=== PATIENT | male | born 1945 | race Caucasian/White ===

== ENCOUNTER 2022-03-28 10:38 | Emergency (ER) | payer MEDICARE, BC, SELFPAY ==
[2022-03-28 10:46] VITALS: BP 132/89; PULSE 80; RESP 16; O2SAT 97; BMI 35.0
--- NOTE | 2022-03-28 10:57 | CRLHL7_ITS ---
For Patients: As a result of the Century Cures Act, medical imaging exams and procedure reports are released immediately into your electronic medical record. You may view this report before your referring provider. If you have questions, please contact your health care provider. INDICATION: FACIAL Injury FALL FROM STANDING COMPARISON: 03/29/2016 TECHNIQUE: A CT volumetric acquisition was performed of the brain without IV contrast. Please note that all CT scans at this facility use dose modulation, iterative reconstruction, and/or weight-based dosing when appropriate to reduce radiation dose to as low as reasonably achievable. FINDINGS: No intracranial hemorrhage, mass or mass effect. Chronic areas of low attenuation in the white matter bilaterally which are nonspecific but likely related to chronic small vessel ischemic disease. There is mild generalized cortical atrophy. No hydrocephalus or midline shift. No extra-axial fluid. No skull fracture. IMPRESSION: No intracranial hemorrhage. Please note that all CT scans at this facility use dose modulation, iterative reconstruction, and/or weight-based dosing when appropriate to reduce radiation dose to as low as reasonably achievable. Dictated by Alejandro Kidd MD @ 03/28/2022 11:31:54 AM (Electronically Signed)
--- NOTE | 2022-03-28 10:58 | CRLHL7_ITS ---
For Patients: As a result of the Cures Act, medical imaging exams and procedure reports are released immediately into your electronic medical record. You may view this report before your referring provider. If you have questions, please contact your health care provider. Indication: Right shoulder pain. Technique: Right shoulder 3 views. Comparison: None. Findings: Spurring at the acromioclavicular joint. Chronic degenerative changes to the greater tuberosity. Intact visualized ribs. Glenohumeral alignment normal. Soft tissue density superior to the humeral head. Impression: No sign of acute fracture. 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 Dictated by Alejandro Kidd MD @ 03/28/2022 11:25:31 AM (Electronically Signed)
--- NOTE | 2022-03-28 11:00 | CRLHL7_ITS ---
For Patients: As a result of the Century Cures Act, medical imaging exams and procedure reports are released immediately into your electronic medical record. You may view this report before your referring provider. If you have questions, please contact your health care provider. INDICATION: FACIAL Injury FALL FROM STANDING COMPARISON: none TECHNIQUE: A CT volumetric acquisition was performed without IV contrast. The CT data set was processed with 2.5 mm slice thickness and reviewed in an axial, sagittal and coronal plane of reformation on a standard soft tissue and bone algorithm. Please note that all CT scans at this facility use dose modulation, iterative reconstruction, and/or weight-based dosing when appropriate to reduce radiation dose to as low as reasonably achievable. FINDINGS: CT images demonstrate normal aeration within the frontal, maxillary, ethmoid and sphenoid sinuses. Leftward deviation of the anterior nasal septum. The infundibular portion of the ostiomeatal complex is intact bilaterally. The orbits are intact. There is a mildly displaced and slightly comminuted fracture of the left anterior nasal bone with adjacent subcutaneous gas. There are no areas of bone destruction. The mandible appears intact and the temporomandibular joints are anatomically aligned. The mastoid air cells and middle ear cavities are clear. IMPRESSION: Left anterior nasal bone fracture with mild adjacent subcutaneous emphysema and soft tissue swelling. Please note that all CT scans at this facility use dose modulation, iterative reconstruction, and/or weight-based dosing when appropriate to reduce radiation dose to as low as reasonably achievable. Dictated by Alejandro Kidd MD @ 03/28/2022 11:35:35 AM (Electronically Signed)
--- NOTE | 2022-03-28 11:00 | ED_ITS ---
HPI - General Adult General Time Seen by Provider: 11:01 Date Seen: 03/28/22 Chief complaint: Fall/Minor Trauma Stated complaint: Fell Time Seen by Provider: 03/28/22 10:48 Source: patient Mode of arrival: ambulatory History of Present Illness HPI narrative: David is a 77-year-old male past medical history includes hypertension, BPH, hyperlipidemia, gout presents emergency department after a fall. Patient states that he was walking into [employer] about an hour ago, hit his right foot on the sidewalk falling forward and reached out with his right arm. He struck the left side of his face on the sidewalk, sustaining injury to his lower lip and nasal area, patient denies any LOC, he is not on any blood thinners or antiplatelet therapy. He complains pain mostly in his right shoulder which has been a chronic issue for him, he does received cortisone shots in clinic for this. Denies any headache, dizziness, lightheadedness or visual changes. Denies any chest pain or shortness of breath. Patient had been doing well prior to the fall this morning. No other concerns at this time. Related Data Home Medications Medication Instructions Recorded Confirmed allopurinol 300 mg tablet mg 03/28/22 atorvastatin 20 mg tablet mg 03/28/22 doxazosin 4 mg tablet mg 03/28/22 finasteride 5 mg tablet mg 03/28/22 lisinopril 20 mg tablet mg 03/28/22 omeprazole 20 mg capsule,delayed mg 03/28/22 release Previous Rx's Medication Instructions Recorded tramadol 50 mg tablet 50 mg PO Q6H PRN pain #20 tabs 03/28/22 Allergies Allergy/AdvReac Type Severity Reaction Status Date / Time tamsulosin Allergy Unknown Verified 03/28/22 10:50 Review of Systems Status of ROS: Reports: 10 or more systems reviewed and unremarkable except as noted in History and below PFS PFS Social History Smoking Status: Former smoker Do you use any of these nicotine containing products: None Second hand tobacco smoke exposure: No How often do you have a drink containing alcohol: 4 or more times a week How many standard drinks containing alcohol do you have on a typical day: 1 or 2 How often do you have six or more drinks on one occasion: Monthly AUDIT-C Alcohol total score: 6 Non-prescribed substance use: denies use service: No Exam Narrative: Exam Narrative: General: No obvious distress, sitting comfortably HEENT: Upper left nasal deformity, swelling and bruising tender to palpation, no step-offs,, nares shows no signs of any septal hematoma. Lower lip: Swelling and abrasion on the outer portion, buccal side has a 1 cm laceration, no through and through. Dentition intact. Nontender that lower mandible, can actively open and close. Neck: Nontender cervical spine Lungs: Clear to auscultation bilaterally Heart: Normal sinus rhythm S1-S2 Abdomen: Soft nontender, BS present Muscle skeletal: Is tender to palpation the right anterior and lateral deltoid, no swelling or bruising, no deformity, Abduction to 90?, pain with internal- external rotation, pain with empty can test, median, ulnar, radial and anterior interosseous motor function normal. Neuro: Alert awake and oriented x3, gait within normal limits Const: Vital Signs, click to edit/add: Vital Signs - 24 hr 03/28/22 10:46 Pulse Rate [Left P ulse Oximeter] 80 Respiratory Rate 16 Blood Pressure [Ri ght Upper Arm] 132/89 Pulse Oximetry 97 Oxygen Delivery Me thod Room Air Course Course Hospital Course: 11:00 am: AIDET performed. Workup will include CT head without IV contrast including CT facial bones without contrast, will also obtain XR right shoulder three views, tramadol 100 mg orally for shoulder pain, patient is up-to-date on his tetanus status, likely perform laceration repair on his lower lip. Patient in agreement. Differential diagnosis include but not limited to subarachnoid hemorrhage, subdural hemorrhage and epidural hemorrhage. Other differential diagnosis include concussion and close head injury. Reevaluation(s) Reevaluation #1: X-ray right shoulder three view showed degenerative joint disease with chronic rotator cuff calcific tendinitis. CT head without IV contrast showed no intracranial hemorrhage mass or mass effect. CT facial without contrast showed a left anterior nasal bone fracture with mild adjacent subcutaneous emphysema and soft tissue swelling. Patient to be updated on his tetanus status, he is feeling better after above care given. Laceration repair complete please see procedure note. He will follow up with ENT next Friday for ER followup and recheck. Reasons to return given. Time: 11:58 Vital Signs Vital signs: Initial Vital Signs Pulse Rate 80 03/28/22 10:46 Pulse Rhythm 09/22/22 10:46 Pulse Strength 3+ Normal 03/28/22 10:46 Respiratory Rate 16 03/28/22 10:46 Blood Pressure 132/89 03/28/22 10:46 Blood Pressure Mean 103 03/28/22 10:46 Blood Pressure Position Sitting 03/28/22 10:46 Pulse Oximetry 97 03/28/22 10:46 Oxygen Delivery Method 03/28/22 10:46 Vital Signs Pulse Rate 80 03/28/22 10:46 Respiratory Rate 16 03/28/22 10:46 Blood Pressure 132/89 03/28/22 10:46 Pulse Oximetry 97 03/28/22 10:46 Oxygen Delivery Method 03/28/22 10:46 Pulse Rate 80 03/28/22 10:46 Respiratory Rate 16 03/28/22 10:46 Blood Pressure 132/89 03/28/22 10:46 Pulse Oximetry 97 03/28/22 10:46 Oxygen Delivery Method 03/28/22 10:46 Discharge Plan Discharge Clinical Impression: Closed fracture nasal bone, Laceration of lip, Injury of shoulder, right Patient Disposition: Home, Self-Care Condition: Improved Instructions: Nasal Fracture (ED) Additional Instructions: To follow up with ENT Dr. Alexis HAWK at [facility], this Friday for ER followup and recheck,, #[phone]. For his shoulder pain, tramadol 50-100 mg every 6 hours as needed. To follow-up with ENT as well as primary care provider. Activity Level: Activity as Tolerated Prescriptions: New tramadol 50 mg tablet 50 mg PO Q6H PRN (Reason: pain) Qty: 20 0RF No Action atorvastatin 20 mg tablet Label Comments: TAKE ONE TABLET BY MOUTH ONE TIME DAILY lisinopril 20 mg tablet Label Comments: TAKE ONE TABLET BY MOUTH ONE TIME DAILY omeprazole 20 mg capsule,delayed release(DR/EC) Label Comments: TAKE ONE CAPSULE BY MOUTH ONE TIME DAILY BEFORE A MEAL. doxazosin 4 mg tablet Label Comments: Take 1 Tablet (4 mg) by mouth once dailY At 3 pm. allopurinol 300 mg tablet Label Comments: TAKE ONE TABLET BY MOUTH ONE TIME DAILY finasteride 5 mg tablet Label Comments: TAKE ONE TABLET BY MOUTH ONE TIME DAILY AT BEDTIME Follow Up/Referrals: Amador Martin MD [Primary Care Provider] - Stand Alone Forms: [employer] Info Instructions
[2022-03-28] MEDS: TRAMADOL HCL 50 MG TABLET 100 MG PO (11:09)
[2022-03-28] MEDS: TETANUS/DIPHTH/PERTUSSIS 0.5 ML SYRINGE IM (11:45)
--- NOTE | 2022-03-28 11:46 | ED.NURSE ---
ENT paged for consult.
== END 2022-03-28 12:04 | disposition home or self-care (01) ==
LOC: ED 11:57
PROVIDERS: Emergency Provider Student in an Organized Health Care Education/Training Program; PCP Family Medicine
DX: S02.2XXA Fracture of nasal bones, initial encounter for closed fracture (principal); S01.511A Laceration without foreign body of lip, initial encounter; S49.91XA Unspecified injury of right shoulder and upper arm, initial encounter; W18.30XA Fall on same level, unspecified, initial encounter; Y93.01 Activity, walking, marching and hiking; Y92.481 Parking lot as the place of occurrence of the external cause; Y99.9 Unspecified external cause status
CPT/HCPCS: 12011; 70450; 70486; 73030; 90471; 90715; 99283; 99284; A9270

== ENCOUNTER 2022-03-28 16:39 | Emergency (ER) | payer MEDICARE, BC, SELFPAY | END 2022-03-28 17:38 | disposition left against medical advice (07) | PROVIDERS: Emergency Provider Family Medicine; PCP Family Medicine | DX: Z53.21 Procedure and treatment not carried out due to patient leaving prior to being seen by health care provider (principal) ==

== ENCOUNTER 2023-06-04 08:40 | Emergency (ER) | payer MEDICARE, BC, SELFPAY ==
[2023-06-04 08:45] VITALS: BP 148/87; PULSE 74; RESP 14; TEMP 36.8; O2SAT 95; BMI 30.4
--- NOTE | 2023-06-04 09:04 | CRLHL7_ITS ---
For Patients: As a result of the Century Cures Act, medical imaging exams and procedure reports are released immediately into your electronic medical record. You may view this report before your referring provider. If you have questions, please contact your health care provider. Indication: Chills Technique: Chest 1 view Comparison: Chest x-ray 11/15/2018 Findings/Impression: Cardiovascular and mediastinum: Heart size and vasculature are normal in caliber and appearance. Lungs and pleural space: Lungs are clear. No sign of infiltrate or mass. No sign of pleural effusion. No pneumothorax. Bones and soft tissues: No acute findings. Dictated by Scott Brian MD @ 06/04/2023 10:26:52 AM (Electronically Signed)
--- NOTE | 2023-06-04 09:06 | ED.GENADULT ---
HPI - General Adult General Chief complaint: Unspecified Complaint, Adult Stated complaint: reaction to COVID shot Time Seen by Provider: 06/04/23 08:57 History of Present Illness HPI narrative: [age] white male presents to complain of some body aches since he got a COVID shot about a month ago. Patient denies specifically sore throat, denies cough, denies dysuria frequency hematuria, denies chest pain or breathing problem. Patient does have history of gout and elevated lipids and hypertension and reflux by chart review. Patient denies any chest pain feeling. He reports he had some back aches last night and in his lower back and presents to the ER today. He had some medications stopped in thought that this might help his symptoms. But he was told by the clinic to come to the ER today. Related Data Home Medications Medication Instructions Recorded Confirmed allopurinol 300 mg tablet mg 03/28/22 04/03/22 atorvastatin 20 mg tablet mg 03/28/22 04/03/22 doxazosin 4 mg tablet mg 03/28/22 04/03/22 finasteride 5 mg tablet mg 03/28/22 04/03/22 lisinopril 20 mg tablet mg 03/28/22 04/03/22 omeprazole 20 mg capsule,delayed mg 03/28/22 04/03/22 release Previous Rx's Medication Instructions Recorded tramadol 50 mg tablet 50 mg PO Q6H PRN pain #20 tabs 03/28/22 Allergies Allergy/AdvReac Type Severity Reaction Status Date / Time tamsulosin Allergy Unknown Verified 06/04/23 08:52 Review of Systems Status of ROS: Reports: 6 or more systems reviewed and unremarkable except as noted in History and below PFSH PFS Social History Smoking Status: Unknown if ever smoked Do you use any of these nicotine containing products: None Second hand tobacco smoke exposure: No How often do you have a drink containing alcohol: 4 or more times a week How many standard drinks containing alcohol do you have on a typical day: 1 or 2 How often do you have six or more drinks on one occasion: Monthly AUDIT-C Alcohol total score: 6 Non-prescribed substance use: denies use service: No Exam Narrative: Exam Narrative: Objective: Vital signs look largely within normal limits other than slightly elevated blood pressure Alert orient x3 no distress HEENT is unremarkable The patient is hard of hearing Neck is supple no masses Chest is clear Heart rhythm regular 2/6 systolic ejection murmur Abdomen benign soft nontender Extremities are no edema neurologic nonfocal good peripheral perfusion noted Peripheral skin warm and dry Const: Vital Signs, click to edit/add: Vital Signs - 24 hr 06/04/23 08:45 Temperature 98.3 F Pulse Rate [Pulse Oximeter] 74 Respiratory Rate 14 Blood Pressure [Ri ght Upper Arm] 148/87 H Pulse Oximetry 95 Oxygen Delivery Me thod Room Air Course Vital Signs Vital signs: Initial Vital Signs Temperature 98.3 F 06/04/23 08:45 Temperature Source Temporal Artery Scan 06/04/23 08:45 Pulse Rate 74 06/04/23 08:45 Respiratory Rate 14 06/04/23 08:45 Blood Pressure 148/87 H 06/04/23 08:45 Blood Pressure Mean 107 H 06/04/23 08:45 Blood Pressure Position Sitting 06/04/23 08:45 Pulse Oximetry 95 06/04/23 08:45 Oxygen Delivery Method Room Air 06/04/23 08:45 Vital Signs Temperature 98.3 F 06/04/23 08:45 Pulse Rate 74 06/04/23 08:45 Respiratory Rate 14 06/04/23 08:45 Blood Pressure 148/87 H 06/04/23 08:45 Pulse Oximetry 95 06/04/23 08:45 Oxygen Delivery Method Room Air 06/04/23 08:45 Temperature 98.3 F 06/04/23 08:45 Pulse Rate 74 06/04/23 08:45 Respiratory Rate 14 06/04/23 08:45 Blood Pressure 148/87 H 06/04/23 08:45 Pulse Oximetry 95 06/04/23 08:45 Oxygen Delivery Method Room Air 06/04/23 08:45 Medical Decision Making MDM Narrative Medical decision making narrative: Patient is a 78 year white male has had some body aches since he got his COVID shot about a month ago. Patient was told by clinic come to the ER. He really has no symptoms at present, no fever, no hypoxia, no real body aches at this time, he said he had some low back ache last night. I think at this point would be reasonable to check some blood cultures, COVID/influenza/RSV, get a chest x-ray, urinalysis, urine culture. Will check electrolytes. Disposition pending findings. At this point the patient has no localizing infection symptoms but I think a workup would be appropriate and then likely careful follow-up with his primary care physician. Addendum 11:03 a.m.: The patient is laboratory studies show normal white count, normal hemoglobin, ER profile is unremarkable other than nonfasting glucose of 140 and potassium at 3.5., liver function profile is negative, CRP is negative, urinalysis is basically shows 3+ protein 2+ blood but no white cells or red cells await urine culture, viral studies are negative. At this point I would recommend observation follow up with primary care in the next 3-4 days certainly sooner change concerns worsening return to ED, at this point he certainly could have some kind of reaction to the vaccine but I having seen at this far out. Would recommend he try some anti-inflammatory such as Advil or Aleve and follow up with primary care in 3-4 days. Lab Data Labs: Lab Results 06/04/23 06/04/23 Range/Units 09:20 09:23 WBC 8.21 (4.50-11.00) K/uL RBC 4.18 L (4.30-5.90) m/uL Hgb 13.6 (13.5-17.5) gm/dL Hct 40.1 (37.0-53.0) % MCV 96 (80-100) fL MCH 33 (26-34) pg MCHC 34 (32-36) gm/dL RDW Coeff of Pam 12.8 (11.5-15.5) % Plt Count 297 (140-440) K/uL Neut % (Auto) 72.6 H (42.0-72.0) % Lymph % (Auto) 19.6 L (20-44) % [place] % (Auto) 5.6 (0.0-11.0) % Eos % (Auto) 1.7 (0.0-7.0) % Baso % (Auto) 0.0 (0.0-3.0) % Neut # (Auto) 6.00 (1.7-7.0) K/uL Lymph # (Auto) 1.60 (0.90-2.90) K/uL [place] # (Auto) 0.50 (0.00-0.90) K/UL Eos # (Auto) 0.14 (0.00-0.50) K/uL Baso # (Auto) 0.00 (0.00-0.30) K/uL Abs Immat Gran (auto) 0.04 (0.00-0.30) K/uL Imm/Tot Granulo (auto) 0.5 % Sodium 143 (135-149) mmol/L Potassium 3.5 L (3.6-5.1) mmol/L Chloride 109 (96-114) mmol/L Carbon Dioxide 25 (20-32) mmol/L Anion Gap 9 (7-15) mEq/L BUN 14 (7-30) mg/dL Creatinine 1.1 (0.5-1.5) mg/dL Estimated Creat Clear 55.27 Estimated GFR 70 ml/min Glucose 140 H (60-115) mg/dL Lactate 1.2 (0.5-1.9) mmol/L Calcium 8.8 (8.4-10.6) mg/dL Total Bilirubin 0.7 (0.1-1.5) mg/dL Direct Bilirubin 0.0 (0.0-0.5) mg/dL AST 23 (12-35) U/L ALT 19 (4-50) U/L Alkaline Phosphatase 87 (40-150) U/L C-Reactive Protein 0.9 (0.5-1.0) mg/dL Total Protein 7.7 (6.0-8.3) g/dL Albumin 4.2 (3.3-5.0) g/dL Urine Color Yellow (Yellow) Urine Appearance Clear (Clear) Urine pH 5.5 (5.0-8.5) Ur Specific [place] >= 1.030 (1.000-1.030) Urine Protein 3+ A (Negative) Urine Glucose (UA) Negative (Negative) Urine Ketones Negative (Negative) Urine Blood 2+ A (Negative) Urine Nitrite Negative (Negative) Urine Bilirubin Negative (Negative) Urine Urobilinogen 0.2 (0.2-1.0) Ur Leukocyte Esterase Negative (Negative) Urine RBC 0-2 (0-2) Urine WBC 0-2 (0-5) Ur Squamous Epith Cells None (None-Few) Urine Bacteria None (None) SARS-CoV-2 (PCR) Negative SARS-CoV-2 (Negative) Influenza Type A (PCR) Negative PCR FLU A (Negative) Influenza Type B (PCR) Negative PCR FLU B (Negative) RSV (PCR) Negative PCR RSV (Negative) Discharge Plan Discharge Clinical Impression: Body aches after vaccination Patient Disposition: Home, Self-Care Condition: Stable Additional Instructions: Advil as needed for discomfort or body aches, recommend follow-up with your regular doctor in the next couple days for reassessment, return to ED sooner problems concerns worsening. Activity Level: No strenuous activity Discharge Diet: Regular Prescriptions: No Action atorvastatin 20 mg tablet Patient Comments: TAKE ONE TABLET BY MOUTH ONE TIME DAILY lisinopril 20 mg tablet Patient Comments: TAKE ONE TABLET BY MOUTH ONE TIME DAILY omeprazole 20 mg capsule,delayed release(DR/EC) Patient Comments: TAKE ONE CAPSULE BY MOUTH ONE TIME DAILY BEFORE A MEAL. doxazosin 4 mg tablet Patient Comments: Take 1 Tablet (4 mg) by mouth once dailY At 3 pm. allopurinol 300 mg tablet Patient Comments: TAKE ONE TABLET BY MOUTH ONE TIME DAILY finasteride 5 mg tablet Patient Comments: TAKE ONE TABLET BY MOUTH ONE TIME DAILY AT BEDTIME tramadol 50 mg tablet 50 mg PO Q6H PRN (Reason: pain) Qty: 20 0RF Follow Up/Referrals: Amador Martin MD [Primary Care Provider] - Stand Alone Forms: [employer] Info Instructions
[2023-06-04 09:32] LABS: Lactate* 1.2 mmol/L (0.5-1.9)
[2023-06-04 09:33] LABS: Eosinophils Absolute Auto 0.14 K/uL (0.00-0.50); Eosinophils Percent Auto 1.7 % (0.0-7.0); Hematocrit 40.1 % (37.0-53.0); Hemoglobin* 13.6 gm/dL (13.5-17.5); Immature Granulocytes Abs Auto 0.04 K/uL (0.00-0.30); Immature Granulocytes Pct Auto 0.5 %; Lymphocytes Percent Auto 19.6 % (20-44); Mean Corpuscular HGB Conc 34 gm/dL (32-36); Mean Corpuscular Hemoglobin 33 pg (26-34); Mean Corpuscular Volume 96 fL (80-100); Monocytes Percent Auto 5.6 % (0.0-11.0); Neutrophils Percent Auto 72.6 % (42.0-72.0); Platelet Count* 297 K/uL (140-440); RDW Coefficient of Variation % 12.8 % (11.5-15.5); Red Blood Count 4.18 m/uL (4.30-5.90); White Blood Count* 8.21 K/uL (4.50-11.00)
[2023-06-04 09:38] LABS: Slide Review Reflex No
[2023-06-04 09:47] LABS: Chloride* 109 mmol/L (96-114); Sodium* 143 mmol/L (135-149)
[2023-06-04 09:48] LABS: Albumin* 4.2 g/dL (3.3-5.0); Potassium* 3.5 mmol/L (3.6-5.1)
[2023-06-04 09:51] LABS: Alanine Aminotransferase* 19 U/L (4-50); Alkaline Phosphatase* 87 U/L (40-150); Anion Gap 9 mEq/L (7-15); Aspartate Amino Transferase* 23 U/L (12-35); Bilirubin Total* 0.7 mg/dL (0.1-1.5); Blood Urea Nitrogen* 14 mg/dL (7-30); Carbon Dioxide* 25 mmol/L (20-32); Creatinine* 1.1 mg/dL (0.5-1.5); Est. Creatinine Clearance* 55.27; Estimated Glomerular Filt Rate 70 ml/min; Glucose* 140 mg/dL (60-115); Total Protein* 7.7 g/dL (6.0-8.3)
[2023-06-04 09:52] LABS: Calcium* 8.8 mg/dL (8.4-10.6)
[2023-06-04 09:54] LABS: C Reactive Protein* 0.9 mg/dL (0.5-1.0)
[2023-06-04 10:17] LABS: Appearance Urine Clear (Clear); Bilirubin Urine Negative (Negative); Blood Urine 2+ (Negative); Color Urine Yellow (Yellow); Glucose Urine Negative (Negative); Ketones Urine Negative (Negative); Leukocyte Esterase Urine Negative (Negative); Nitrite Urine Negative (Negative); Protein Urine 3+ (Negative); Specific Gravity Urine >= 1.030 (1.000-1.030); Urobilinogen Urine 0.2 (0.2-1.0); pH Urine 5.5 (5.0-8.5)
[2023-06-04 10:26] LABS: PCR FLU A Negative PCR FLU A (Negative); PCR FLU B Negative PCR FLU B (Negative); PCR RSV Negative PCR RSV (Negative)
[2023-06-04 10:27] LABS: SARS PCR* Negative SARS-CoV-2 (Negative)
[2023-06-04 10:39] LABS: RBC Urine 0-2 (0-2); WBC Urine 0-2 (0-5)
== END 2023-06-04 11:10 | disposition home or self-care (01) ==
PROVIDERS: Emergency Provider Family Medicine; PCP Family Medicine
DX: M79.18 Myalgia, other site (principal); T50.Z95A Adverse effect of other vaccines and biological substances, initial encounter
CPT/HCPCS: 36415; 71045; 80048; 80076; 81001; 83605; 85025; 86140; 87040; 87086; 87631; 99283; 99284

== ENCOUNTER 2024-06-23 08:51 | Emergency (ER) | payer MEDICARE, BC, SELFPAY ==
--- NOTE | 2024-06-23 | CRLHL7_ITS ---
For Patients: As a result of the Cures Act, medical imaging exams and procedure reports are released immediately into your electronic medical record. You may view this report before your referring provider. If you have questions, please contact your health care provider. Dictation for this exam included within the brain MRI report from the same date. Dictated by Grover Willis MD @ 06/23/2024 5:52:56 PM (Electronically Signed)
[2024-06-23 09:08] VITALS: BP 166/93; PULSE 64; RESP 16; TEMP 36.9; O2SAT 99; BMI 28.1
--- NOTE | 2024-06-23 09:53 | CRLHL7_ITS ---
For Patients: As a result of the Century Cures Act, medical imaging exams and procedure reports are released immediately into your electronic medical record. You may view this report before your referring provider. If you have questions, please contact your health care provider. INDICATION: Acute stroke, left-sided vision loss. TECHNIQUE: CTA head with contrast bolus tracking, 3D angiographic rendering using maximum intensity projection (MIP) and images permanently archived. FINDINGS: There is normal opacification of the intracranial vasculature. There is no large vessel occlusion. No aneurysm is identified. IMPRESSION: Unremarkable head CTA. Please note that all CT scans at this facility use dose modulation, iterative reconstruction, and/or weight-based dosing when appropriate to reduce radiation dose to as low as reasonably achievable. Dictated by Tino Gonzales MD @ 06/23/2024 1:58:00 PM (Electronically Signed)
--- NOTE | 2024-06-23 09:53 | CRLHL7_ITS ---
For Patients: As a result of the Century Cures Act, medical imaging exams and procedure reports are released immediately into your electronic medical record. You may view this report before your referring provider. If you have questions, please contact your health care provider. INDICATION: Acute stroke, left-sided vision loss. TECHNIQUE: CTA neck with contrast bolus tracking, 3D angiographic rendering using maximum intensity projection (MIP) and images permanently archived. FINDINGS: There is minor carotid atherosclerosis. There is no significant carotid artery stenosis or dissection. There is no significant vertebral artery stenosis or dissection. A small indeterminate right thyroid nodule is incidentally noted. The soft tissues of the neck are otherwise within normal limits. The cervical spine is in normal alignment. Degenerative changes are noted in the cervical spine. IMPRESSION: No significant carotid or vertebral artery stenosis or dissection. Please note that all CT scans at this facility use dose modulation, iterative reconstruction, and/or weight-based dosing when appropriate to reduce radiation dose to as low as reasonably achievable. Dictated by Tino Gonzales MD @ 06/23/2024 1:59:56 PM (Electronically Signed)
--- NOTE | 2024-06-23 09:53 | CRLHL7_ITS ---
For Patients: As a result of the Century Cures Act, medical imaging exams and procedure reports are released immediately into your electronic medical record. You may view this report before your referring provider. If you have questions, please contact your health care provider. INDICATION: Left-sided vision loss TECHNIQUE: CT head without contrast. COMPARISON: None. FINDINGS: CSF spaces: Within normal limits for age. Brain parenchyma: The marquez-white differentiation is normal. No sign of mass, hemorrhage, or midline shift. Moderate low-density within the deep white matter. Skull base and calvarium: Trace mucosal thickening paranasal sinuses. Small right mastoid effusion. The visualized orbits are grossly unremarkable. No skull fractures. Atherosclerosis. IMPRESSION: 1. No intracranial bleed or mass effect. 2. Nonspecific white matter disease, likely microangiopathy. Please note that all CT scans at this facility use dose modulation, iterative reconstruction, and/or weight-based dosing when appropriate to reduce radiation dose to as low as reasonably achievable. Dictated by Scott Brian MD @ 06/23/2024 10:58:14 AM (Electronically Signed)
--- NOTE | 2024-06-23 10:06 | ED_ITS ---
HPI - General Adult General Chief complaint: Eye Problems Stated complaint: vision concerns Time Seen by Provider: 06/23/24 09:10 Source: patient Mode of arrival: ambulatory Limitations: no limitations History of Present Illness HPI narrative: 79-year-old male presenting today with blurry vision. Six days ago patient woke up with blurry vision in the left eye. Her vision has been unchanged for the last 6 days. He denies headache, nausea, vomiting. He he denies changes in his appetite, he denies new onset of dizziness. He has no difficulty with moving any of the extremities, no focal neurologic deficits. Patient was seen by the director volunteer services at [facility] yesterday and there was concern for possible giant cell arteritis. Therefore patient followed up with his primary care provider who guzman a sed rate and a CRP. Results came back this morning with a CRP of 1.3 and a sed rate of a 49-patient was told he needed to be seen at [place] with a analytical consultant team immediately. Unfortunately, patient could not get to [place] so he came here instead. According to Dr. Mendiola, he did have a conversation with a analytical consultant at [place] who recommended the patient be transferred. Related Data Home Medications ?Medication ?Instructions ?Recorded ?Confirmed allopurinol 300 mg tablet 300 mg DAILY 03/28/22 04/03/22 atorvastatin 20 mg tablet 20 mg PO DAILY 03/28/22 06/23/24 doxazosin 4 mg tablet 4 mg PO DAILY 03/28/22 06/23/24 finasteride 5 mg tablet 5 mg PO HS 03/28/22 06/23/24 lisinopril 20 mg tablet 20 mg PO DAILY 03/28/22 06/23/24 omeprazole 20 mg capsule,delayed 20 mg PO DAILY 03/28/22 06/23/24 release Allergies Allergy/AdvReac Type Severity Reaction Status Date / Time tamsulosin Allergy Unknown Verified 06/23/24 11:10 Review of Systems Status of ROS: Reports: 10 or more systems reviewed and unremarkable except as noted in History and below [facility] Social History Smoking Status: Unknown if ever smoked Do you use any of these nicotine containing products: None Second hand tobacco smoke exposure: No How often do you have a drink containing alcohol: 4 or more times a week How many standard drinks containing alcohol do you have on a typical day: 3 or 4 How often do you have six or more drinks on one occasion: Monthly AUDIT-C Alcohol total score: 7 Non-prescribed substance use: denies use service: No Exam Narrative: Exam Narrative: Well-nourished well-developed patient in no acute distress. Alert and oriented. Answers questions appropriately. Mood and affect are appropriate. Thoughts are goal oriented and rational. No tangential or magical thinking noted. Patient speaks in full sentences without needing to catch his breath. HEENT: Normocephalic atraumatic. Pupils are equally round reactive to light. Extraocular muscles are intact. He has no pain with extraocular movement. Conjunctivae are moist without any icterus noted. Moist mucous membranes. Neck is soft without lymphadenopathy. Eye exam was done: Patient is 20/50 on the right and could not see anything with the left. TMs are clear bilaterally. Cardiovascular: Heart is regular rate and rhythm. Lungs: Clear to auscultation bilaterally. Skin: Well perfused without any obvious rashes. Const: Vital Signs, click to edit/add: Vital Signs - 24 hr 06/23/24 09:08 06/23/24 12:56 Temperature 98.4 F Pulse Rate [Pulse Oximeter] 64 Respiratory Rate 16 Blood Pressure [Le ft Upper Arm] 180/100 H Blood Pressure [Ri ght Upper Arm] 166/93 H 161/89 H Pulse Oximetry 99 Oxygen Delivery Me thod Room Air Course Course ED Course: Because a CRP of 1.3 and a sed rate of 49 are not very convincing for giant cell arteritis we did opt to repeat this blood work today. Symptoms are also c oncerning for a retinal vein or artery occlusion: Therefore head CT and CTAs were ordered. Discussed patient with Dr. Alva, director volunteer services that patient's eye yesterday who discussed that he had a fairly normal eye exam. CBC shows mild anemia. CRP is normal at 1.0. Chemistries are unremarkable. ESR is up at 73. Head CT, head and neck CTA is all unremarkable. Patient will proceed to MRI. Giant cell arteritis certainly not impossible but less likely with above blood work. However, he did have a discrepancy between left and right arm blood pressures: Left arm was 180/100 and right arm was 161/89 which would be consistent with giant cell arteritis. The MRI did not have any abnormalities to explain his symptoms. Discussed patient with Dr. Meeks, neurology at [facility] who did not feel that there is any other neurologic explanation for his symptoms. Discussed patient with Dr. Alonzo our general surgeon who recommended following up with a temporal artery biopsy for potential giant cell arteritis. Because of this potential, we did go ahead and give him methylprednisolone 500 mg IV today and will continue this treatment daily for the next 3 days. Will then switch to oral prednisone until biopsy results return. Tomorrow morning on 06/24/2024, the surgical team will contact the patient in the morning to let him know when to come in for a biopsy that same day. When he comes in he will also then received a 2nd dose of steroid infusion. This was discussed with Dr. Alonzo. Vital Signs Vital signs: Initial Vital Signs Temperature 98.4 F 06/23/24 09:08 Temperature Source Temporal Artery Scan 06/23/24 09:08 Pulse Rate 64 06/23/24 09:08 Respiratory Rate 16 06/23/24 09:08 Blood Pressure 166/93 H 06/23/24 09:08 Blood Pressure Mean 117 H 06/23/24 09:08 Blood Pressure Position Sitting 06/23/24 09:08 Pulse Oximetry 99 06/23/24 09:08 Oxygen Delivery Method Room Air 06/23/24 09:08 Vital Signs Temperature 98.4 F 06/23/24 09:08 Pulse Rate 64 06/23/24 09:08 Respiratory Rate 16 06/23/24 09:08 Blood Pressure 166/93 H 06/23/24 09:08 Pulse Oximetry 99 06/23/24 09:08 Oxygen Delivery Method Room Air 06/23/24 09:08 Temperature 98.4 F 06/23/24 09:08 Pulse Rate 64 06/23/24 09:08 Respiratory Rate 16 06/23/24 09:08 Blood Pressure 161/89 H 06/23/24 12:56 Pulse Oximetry 99 06/23/24 09:08 Oxygen Delivery Method Room Air 06/23/24 09:08 Medications Administered Medications: Discontinued Medications Generic Name Dose Route Start Last Admin Trade Name Freq PRN Reason Stop Dose Admin Diazepam 5 mg 06/23/24 11:28 06/23/24 16:00 Diazepam 5 Mg Tablet PO 06/23/24 11:29 5 mg ONCE ONE Administration Medical Decision Making MDM Narrative Medical decision making narrative: 79-year-old male with unilateral vision loss, unclear etiology. Plan per above Lab Data Lab results reviewed: Yes I reviewed the patient's lab results Labs: Lab Results 06/23/24 Range/Units 09:33 WBC 7.74 (4.50-11.00) K/uL RBC 3.77 L (4.30-5.90) m/uL Hgb 11.7 L (13.5-17.5) gm/dL Hct 35.5 L (37.0-53.0) % MCV 94 (80-100) fL MCH 31 (26-34) pg MCHC 33 (32-36) gm/dL RDW Coeff of Pam 14.3 (11.5-15.5) % Plt Count 289 (140-440) K/uL Neut % (Auto) 76.7 H (42.0-72.0) % Lymph % (Auto) 15.4 L (20-44) % [facility] % (Auto) 5.2 (0.0-11.0) % Eos % (Auto) 1.6 (0.0-7.0) % Baso % (Auto) 0.3 (0.0-3.0) % Neut # (Auto) 5.90 (1.7-7.0) K/uL Lymph # (Auto) 1.20 (0.90-2.90) K/uL [facility] # (Auto) 0.40 (0.00-0.90) K/UL Eos # (Auto) 0.12 (0.00-0.50) K/uL Baso # (Auto) 0.02 (0.00-0.30) K/uL Abs Immat Gran (auto) 0.06 (0.00-0.30) K/uL Imm/Tot Granulo (auto) 0.8 % ESR 73 H (2-15) mm/hr Sodium 143 (135-149) mmol/L Potassium 3.4 L (3.6-5.1) mmol/L Chloride 114 (96-114) mmol/L Carbon Dioxide 19 L (20-32) mmol/L Anion Gap 10 (7-15) mEq/L BUN 26 (7-30) mg/dL Creatinine 1.4 (0.5-1.5) mg/dL Estimated Creat Clear 42.75 Estimated GFR 52 ml/min Glucose 112 (60-115) mg/dL Calcium 9.0 (8.4-10.6) mg/dL C-Reactive Protein 1.0 (0.5-1.0) mg/dL Imaging Data CT scan - head: Attestation: I have reviewed the pertinent imaging results. Radiologist's impression: INDICATION: Left-sided vision loss TECHNIQUE: CT head without contrast. COMPARISON: None. FINDINGS: CSF spaces: Within normal limits for age. Brain parenchyma: The marquez-white differentiation is normal. No sign of mass, hemorrhage, or midline shift. Moderate low-density within the deep white matter. Skull base and calvarium: Trace mucosal thickening paranasal sinuses. Small right mastoid effusion. The visualized orbits are grossly unremarkable. No skull fractures. Atherosclerosis. IMPRESSION: 1. No intracranial bleed or mass effect. 2. Nonspecific white matter disease, likely microangiopathy. Head CTA: Attestation: I have reviewed the pertinent imaging results. Radiologist's impression: TECHNIQUE: CTA head with contrast bolus tracking, 3D angiographic rendering using maximum intensity projection (MIP) and images permanently archived. FINDINGS: There is normal opacification of the intracranial vasculature. There is no large vessel occlusion. No aneurysm is identified. IMPRESSION: Unremarkable head CTA. Neck CTA: Attestation: I have reviewed the pertinent imaging results. Radiologist's impression: TECHNIQUE: CTA neck with contrast bolus tracking, 3D angiographic rendering using maximum intensity projection (MIP) and images permanently archived. FINDINGS: There is minor carotid atherosclerosis. There is no significant carotid artery stenosis or dissection. There is no significant vertebral artery stenosis or dissection. A small indeterminate right thyroid nodule is incidentally noted. The soft tissues of the neck are otherwise within normal limits. The cervical spine is in normal alignment. Degenerative changes are noted in the cervical spine. IMPRESSION: No significant carotid or vertebral artery stenosis or dissection. MRI - head: Attestation: I have reviewed the pertinent imaging results. Radiologist's impression: INDICATION: Left eye blurred vision. TECHNIQUE: Brain and orbits MRI with and without contrast. 15 cc Dotarem gadolinium based contrast administered. COMPARISON: CTA head and neck from 06/23/2024. FINDINGS: Orbits: Ocular globes and lenses: Within normal limits. Extra-ocular muscles: Within normal limits. Lacrimal glands and other orbital soft tissues. Tubular structure within the left inferior orbit which is centrally T2 hypointense and peripherally T2 hyperintense. 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 A structure with a similar imaging appearance on the right also likely represents a smaller varix. Intracranial optic nerve segments: Within normal limits. Intraorbital optic nerve segments and optic chiasm: Within normal limits. Intracranial visual pathways: Within normal limits. Brain: No evidence of acute ischemia. No evidence of acute or chronic intracranial blood products. No mass or pathologic intracranial enhancement. Patchy FLAIR hyperintensities within the supratentorial white matter, typical for chronic microvascular ischemic change. Chronic lacunar infarcts within the right putamen. Moderate generalized parenchymal volume loss. No hydrocephalus or extra-axial collections. The pituitary gland and parasellar structures are normal. Posterior fossa is normal. All the major intracranial vascular structures demonstrate normal flow-related signal. No calvarial or skull base marrow signal abnormality. A right-sided mastoid effusion. No obstructive sinus disease. No extracranial soft tissue findings. IMPRESSION: 1. Tubular structure left inferior orbit has an appearance typical for a venous varix. There also appears to be a smaller varix on the right. Orbital contents are otherwise normal in appearance. 2. No acute ischemia or other acute intracranial pathology. 3. No mass or pathologic intracranial enhancement. 4. Mild chronic microvascular ischemic changes and moderate generalized parenchymal volume loss. Discharge Plan Discharge Clinical Impression: Unilateral visual loss Patient Disposition: Home, Self-Care Condition: Unchanged Additional Instructions: You will need IV steroids for 3 days: today, 06/24/2024 and Friday06/25/2024. You will likely have your surgery (biopsy) tomorrow: Do not eat anything after 7:00 a.m. The surgical team will give you will call in the morning to let you know what time you should come in. You will also get your 2nd steroid infusion when you come in for your procedure. After your 3rd steroid infusion on Friday, you can flower buncher or picker your steroid prescription that was given to you by Dr. Brothers and start that medication on Tuesday 06/26. Recommend you follow-up with Dr. Mendiola on Friday. Prescriptions: No Action atorvastatin 20 mg tablet 20 mg PO DAILY Patient Comments: TAKE ONE TABLET BY MOUTH ONE TIME DAILY lisinopril 20 mg tablet 20 mg PO DAILY Patient Comments: TAKE ONE TABLET BY MOUTH ONE TIME DAILY omeprazole 20 mg capsule,delayed release(DR/EC) 20 mg PO DAILY Patient Comments: TAKE ONE CAPSULE BY MOUTH ONE TIME DAILY BEFORE A MEAL. doxazosin 4 mg tablet 4 mg PO DAILY Patient Comments: Take 1 Tablet (4 mg) by mouth once dailY At 3 pm. allopurinol 300 mg tablet 300 mg DAILY Patient Comments: TAKE ONE TABLET BY MOUTH ONE TIME DAILY finasteride 5 mg tablet 5 mg PO HS Patient Comments: TAKE ONE TABLET BY MOUTH ONE TIME DAILY AT BEDTIME Follow Up/Referrals: Amador Martin MD [Primary Care Provider] - Stand Alone Forms: [employer] Info Instructions
[2024-06-23 10:08] LABS: Chloride* 114 mmol/L (96-114); Potassium* 3.4 mmol/L (3.6-5.1); Sodium* 143 mmol/L (135-149)
[2024-06-23 10:11] LABS: Creatinine* 1.4 mg/dL (0.5-1.5); Est. Creatinine Clearance* 42.75; Estimated Glomerular Filt Rate 52 ml/min
[2024-06-23 10:12] LABS: Anion Gap 10 mEq/L (7-15); Blood Urea Nitrogen* 26 mg/dL (7-30); Carbon Dioxide* 19 mmol/L (20-32); Glucose* 112 mg/dL (60-115)
[2024-06-23 10:21] LABS: Basophils Absolute Auto 0.02 K/uL (0.00-0.30); Basophils Percent Auto 0.3 % (0.0-3.0); Eosinophils Absolute Auto 0.12 K/uL (0.00-0.50); Eosinophils Percent Auto 1.6 % (0.0-7.0); Hematocrit 35.5 % (37.0-53.0); Hemoglobin* 11.7 gm/dL (13.5-17.5); Immature Granulocytes Abs Auto 0.06 K/uL (0.00-0.30); Immature Granulocytes Pct Auto 0.8 %; Lymphocytes Percent Auto 15.4 % (20-44); Mean Corpuscular HGB Conc 33 gm/dL (32-36); Mean Corpuscular Hemoglobin 31 pg (26-34); Mean Corpuscular Volume 94 fL (80-100); Monocytes Percent Auto 5.2 % (0.0-11.0); Neutrophils Percent Auto 76.7 % (42.0-72.0); Platelet Count* 289 K/uL (140-440); RDW Coefficient of Variation % 14.3 % (11.5-15.5); Red Blood Count 3.77 m/uL (4.30-5.90); White Blood Count* 7.74 K/uL (4.50-11.00)
[2024-06-23 10:23] LABS: Slide Review Reflex No
--- NOTE | 2024-06-23 10:54 | CRLHL7_ITS ---
For Patients: As a result of the Century Cures Act, medical imaging exams and procedure reports are released immediately into your electronic medical record. You may view this report before your referring provider. If you have questions, please contact your health care provider. INDICATION: Left eye blurred vision. TECHNIQUE: Brain and orbits MRI with and without contrast. 15 cc Dotarem gadolinium based contrast administered. COMPARISON: CTA head and neck from 06/23/2024. FINDINGS: Orbits: Ocular globes and lenses: Within normal limits. Extra-ocular muscles: Within normal limits. Lacrimal glands and other orbital soft tissues. Tubular structure within the left inferior orbit which is centrally T2 hypointense and peripherally T2 hyperintense. 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 A structure with a similar imaging appearance on the right also likely represents a smaller varix. Intracranial optic nerve segments: Within normal limits. Intraorbital optic nerve segments and optic chiasm: Within normal limits. Intracranial visual pathways: Within normal limits. Brain: No evidence of acute ischemia. No evidence of acute or chronic intracranial blood products. No mass or pathologic intracranial enhancement. Patchy FLAIR hyperintensities within the supratentorial white matter, typical for chronic microvascular ischemic change. Chronic lacunar infarcts within the right putamen. Moderate generalized parenchymal volume loss. No hydrocephalus or extra-axial collections. The pituitary gland and parasellar structures are normal. Posterior fossa is normal. All the major intracranial vascular structures demonstrate normal flow-related signal. No calvarial or skull base marrow signal abnormality. A right-sided mastoid effusion. No obstructive sinus disease. No extracranial soft tissue findings. IMPRESSION: 1. Tubular structure left inferior orbit has an appearance typical for a venous varix. There also appears to be a smaller varix on the right. Orbital contents are otherwise normal in appearance. 2. No acute ischemia or other acute intracranial pathology. 3. No mass or pathologic intracranial enhancement. 4. Mild chronic microvascular ischemic changes and moderate generalized parenchymal volume loss. Dictated by Grover Willis MD @ 06/23/2024 5:52:24 PM (Electronically Signed)
[2024-06-23 11:22] LABS: Erythrocyte SedimentationRate* 73 mm/hr (2-15)
[2024-06-23 12:56] VITALS: BP 161/89; BP 180/100
[2024-06-23] MEDS: diazePAM 5 MG TABLET PO (16:00)
[2024-06-23 18:44] VITALS: BP 174/98
[2024-06-23] MEDS: METHYLPREDNISOLONE SOD SUCC 62.5 MG/ML (125) 500 MG IVP (18:45)
== END 2024-06-23 19:25 | disposition home or self-care (01) ==
PROVIDERS: Emergency Provider Family Medicine; PCP Family Medicine
DX: H54.62 Unqualified visual loss, left eye, normal vision right eye (principal)
CPT/HCPCS: 36415; 70450; 70496; 70498; 70543; 70553; 80048; 85025; 85651; 86140; 96374; 99284; 99285; A9575; J2919; Q9967

== ENCOUNTER 2024-06-24 12:25 | Day surgery (SDC) | payer MEDICARE, BC, SELFPAY ==
--- NOTE | 2024-06-24 12:43 | P.GSCN_ITS ---
History of Present Illness Consult details Date Seen: 06/24/24 Consult date: 06/24/24 Narrative: 79-year-old male was seen in the emergency room with left eye blurry vision, and I was asked by Dr. Hanna to see me consultation. Patient states that he was watching TV several days ago and all of a sudden developed left eye blurry vision. The blurry vision continued and he continues to have it in the left eye. He was seen by his second floor operator and his second floor operator was worried about giant cell arteritis. Patient was referred to emergency room. He was seen in emergency room yesterday and was found to have ESR of 73. Head CT and brain MRI were normal with no evidence of stroke. There was a mention of left inferior orbit venous varix. Patient was then placed on IV steroids due to concern for temporal arteritis. Review of Systems Narrative: General: no fevers HENT: no problems swallowing CV: no shortness of breath Resp: no cough GI: No nausea, vomiting, abdominal pain : no dysuria, no increased urinary frequency, no hematuria Skin: no new rashes Musculoskeletal: no back pain Neuro: no muscle weakness Psyche: no depression, no anxiety [facility] Medical History Primary osteoarthritis of left knee ?M17.12 - Unilateral primary osteoarthritis, left knee (ICD-10) Pes anserinus tendinitis of right lower extremity ?M76.891 - Other specified enthesopathies of right lower limb, excluding foot (ICD-10) Right rotator cuff tendonitis ?M75.81 - Other shoulder lesions, right shoulder (ICD-10) Pain in right knee ?M25.561 - Pain in right knee (ICD-10) Arthritis of left knee ?M17.12 - Unilateral primary osteoarthritis, left knee (ICD-10) Benign prostatic hyperplasia without urinary obstruction ?N40.0 - Benign prostatic hyperplasia without lower urinary tract symptoms (ICD-10) Arthritis of left acromioclavicular joint ?M19.012 - Primary osteoarthritis, left shoulder (ICD-10) Nontraumatic complete tear of left rotator cuff ?M75.122 - Complete rotator cuff tear or rupture of left shoulder, not specified as traumatic (ICD-10) Idiopathic gout ?M10.00 - Idiopathic gout, unspecified site (ICD-10) Renal cyst ?N28.1 - Cyst of kidney, acquired (ICD-10) Vitamin D deficiency ?E55.9 - Vitamin D deficiency, unspecified (ICD-10) Elevated prostate specific antigen (PSA) ?R97.20 - Elevated prostate specific antigen [PSA] (ICD-10) Renal insufficiency ?N28.9 - Disorder of kidney and ureter, unspecified (ICD-10) Kidney stones ?N20.0 - Calculus of kidney (ICD-10) Impaired fasting glucose ?R73.01 - Impaired fasting glucose (ICD-10) Unspecified essential hypertension ?I10 - Essential (primary) hypertension (ICD-10) Impotence of organic origin ?N52.9 - Male erectile dysfunction, unspecified (ICD-10) Unspecified disorder of kidney and ureter ?N28.9 - Disorder of kidney and ureter, unspecified (ICD-10) Gout ?M10.9 - Gout, unspecified (ICD-10) Obesity ?E66.9 - Obesity, unspecified (ICD-10) Surgical History (Updated 06/24/24 @ 13:04 by Hansel Canas MD) Hx of vasectomy ?Z98.52 - Vasectomy status (ICD-10) Hx of tonsillectomy ?Z90.89 - Acquired absence of other organs (ICD-10) History of lithotripsy ?Z98.890 - Other specified postprocedural states (ICD-10) Hx of arthroscopy of knee ?Z98.890 - Other specified postprocedural states (ICD-10) History of renal stent Hx of hernia repair ?Z98.890 - Other specified postprocedural states (ICD-10) ?Z87.19 - Personal history of other diseases of the digestive system (ICD-10) Hx of repair of left rotator cuff ?Z98.890 - Other specified postprocedural states (ICD-10) Social History Smoking Status: Unknown if ever smoked Do you use any of these nicotine containing products: None Second hand tobacco smoke exposure: No How often do you have a drink containing alcohol: 4 or more times a week How many standard drinks containing alcohol do you have on a typical day: 3 or 4 How often do you have six or more drinks on one occasion: Monthly AUDIT-C Alcohol total score: 7 Non-prescribed substance use: denies use service: No Meds Home Medications and Allergies Home Medications ?Medication ?Instructions ?Recorded ?Confirmed ?Type allopurinol 300 mg tablet 300 mg DAILY 03/28/22 04/03/22 History atorvastatin 20 mg tablet 20 mg PO DAILY 03/28/22 06/23/24 History doxazosin 4 mg tablet 4 mg PO DAILY 03/28/22 06/23/24 History finasteride 5 mg tablet 5 mg PO HS 03/28/22 06/23/24 History lisinopril 20 mg tablet 20 mg PO DAILY 03/28/22 06/23/24 History omeprazole 20 mg capsule,delayed 20 mg PO DAILY 03/28/22 06/23/24 History release Allergies Allergy/AdvReac Type Severity Reaction Status Date / Time tamsulosin Allergy Unknown Verified 06/23/24 11:10 Exam Narrative: Exam Narrative: General appearance: Alert, cooperative, and in no distress head: no pain with palpation of bilateral temples, bilateral temporal arteries are palpable and are with equal strong pulse. No tenderness to palpation of bilateral TMJ joints, no masses palpated in the neck. Pulmonary: Chest symmetric, lungs clear bilaterally Cardiovascular Heart: Regular rate and rhythm, S1, S2, no murmurs/rubs/gallops Skin: Normal skin color, texture, and turgor. No rashes or lesions. Psychiatric: Alert, cooperative, normal affect. Results Labs Labs: All other labs normal. Progress Note:A&P Assessment and plan (1) Unilateral visual loss: Status: Acute Assessment and Plan: 79-year-old male presents with left eye blurry vision concerning for temporal arteritis. I discussed with the patient his imaging findings and his laboratory findings. Patient was seen by an second floor operator with no explanation for his blurry vision. He has elevated ESR. I recommended to proceed with a left temporal artery biopsy. The procedure was discussed in detail. The risks associated procedure including infection, bleeding, and the need for additional procedures were all discussed with the patient, and he agreed to proceed. Patient was placed on IV steroids yesterday in the emergency room. He will receive his infusion of IV steroids today intraoperatively or postoperatively.
[2024-06-24 12:59] VITALS: BMI 26.5
[2024-06-24 13:05] VITALS: BP 162/83; PULSE 95; RESP 16; TEMP 36.9; O2SAT 97
[2024-06-24] MEDS: SODIUM CHLORIDE 0.9 % (FLUSH) 10 ML SYRINGE IVF (13:07)
[2024-06-24] MEDS: LACTATED RINGERS 1000 ML 1,000 ML 100 ML IV (13:07)
[2024-06-24] MEDS: CEFAZOLIN 2 GM INJ IVP (13:22)
--- NOTE | 2024-06-24 13:27 | W.ANESCHARGE ---
Anesthesia Charges Start Date/Time Anesthesia Start Date: 06/24/24 Anesthesia Start Time: 13:09 Stop Date/Time Anesthesia Stop Date: 06/24/24 Anesthesia Stop Time: 14:08 Summary Extremes of Age - Over 70 or under 1: MDA
[2024-06-24] MEDS: LIDOCAINE 1%-EPI 1:100,000 20 ML INFILTRATI (13:40)
[2024-06-24] MEDS: BUPIVACAINE 0.25% 30 ML INJECTION (13:40)
[2024-06-24 14:04] VITALS: BP 129/69; PULSE 82; RESP 16; TEMP 36.7; O2SAT 95
--- NOTE | 2024-06-24 14:06 | PM.GSPRC ---
Operative Note Date of procedure: 06/24/24 Pre-op diagnosis: 1. Left eye blurry vision concerning for giant cell arteritis. Post-op diagnosis: Same Type of Procedure: 1. Left temporal artery biopsy. Indications: 79-year-old male was seen in emergency room with concern of left eye blurry vision for several days. Patient had an eye exam which was not revealing of etiology of his blurry vision. He had head MRI and CT that did not show any intracranial masses. 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 Patient's ESR was elevated in the 70s. On clinical exam he had no tenderness to palpation in bilateral temples. His left temporal artery pulse was palpable and was equal to the right side. Given his symptoms, he was started on IV steroids. He was referred to our General surgery Service for temporal artery biopsy. The procedure was discussed in detail. The risks associated procedure including infection, bleeding, and the need for additional procedures were all discussed with the patient, and he agreed to proceed. Procedure Description: After discussing the risks and benefits of the procedure, the patient signed informed consent.? The operative site was marked and the patient was brought to the operating room and placed on the operating table in supine position.? Care was taken to pad the patient's pressure points.?? The patient was then sedated by anesthesia.?? The operative site was then prepped and draped in the usual sterile fashion.? A time-out was then performed. The left superficial temporal artery pulse was palpated and the course of the artery was marked with a marking pen. A mixture of 1% Lidocaine and 0.25% Marcaine with Epinephrine was injected at the site of the incision and a vertical skin incision was made with a scalpel. Subcutaneous tissues were dissected with tenotomy scissors. The use of cautery was minimized throughout the case. Superficial temporal fascia was opened and the course of the superficial temporal artery was visualized. Tissues around the artery were dissected off the with cautery. The pulse of the temporal artery was visualized. There were multiple small arterial branches and those were controlled with cautery and small clips. When over 3 cm of the temporal artery was exposed, its proximal and distal ends were tied with 3-0 vicryl ties and the exposed segment of the left temporal artery was excised. The specimen was passed off the field and sent to pathology. Surgical field was examined for bleeding and there was none. I additional local anesthetic was injected at the surgical site. Subdermal layer was re-approximated with interrupted 3-0 vicryl stitches. Skin was closed with a running 4-0 monocryl stitch. Steries were applied over the incision. All counts were correct at the end of the case. Patient tolerated the procedure well and was transferred to same day surgery in stable condition. Sterile dressings were then applied. Findings: Prominent temporal artery, 3 cm segment was excised. Anesthesia: MAC and local Surgeon: Hansel Canas MD Estimated blood loss (mL): 3 Additional Specimen Information: 1. Left temporal artery. Condition: stable Disposition: same day
--- NOTE | 2024-06-24 14:09 | P.ANES_ITS ---
Anesthesia Charges Start Date/Time Anesthesia Start Date: 06/24/24 Anesthesia Start Time: 13:09 Stop Date/Time Anesthesia Stop Date: 06/24/24 Anesthesia Stop Time: 14:08 Summary Extremes of Age - Over 70 or under 1: CABIN [employer]
[2024-06-24 14:15] VITALS: BP 128/70; PULSE 80; RESP 16; O2SAT 96
[2024-06-24 14:30] VITALS: BP 129/72; PULSE 82; RESP 16; O2SAT 97
[2024-06-24 14:45] VITALS: BP 127/70; PULSE 80; RESP 16; O2SAT 98
== END 2024-06-24 15:07 | disposition home or self-care (01) ==
PROVIDERS: PCP Family Medicine; Visit Provider Surgery
PROC: (CPT 37609; principal; 2024-06-24 13:45)
DX: H53.132 Sudden visual loss, left eye (principal); H53.8 Other visual disturbances; R70.0 Elevated erythrocyte sedimentation rate
CPT/HCPCS: 37609; 00352; 88305; 99100; J0665; J0690; J1100; J2405; J2704; J2919; J3010; J7120

== ENCOUNTER 2024-06-25 11:31 | Outpatient (RCR) | payer MEDICARE, BC, SELFPAY | END 2024-12-22 23:59 | disposition home or self-care (01) | LOC: CCIC 11:31 | PROVIDERS: PCP Family Medicine; Referring Provider Family Medicine; Visit Provider Family Medicine | DX: M31.6 Other giant cell arteritis (principal) | CPT/HCPCS: 96365; J2919 ==

== ENCOUNTER 2024-08-24 08:07 | Outpatient (CLI) | payer MEDICARE, BC, SELFPAY ==
[2024-08-24 08:49] LABS: Basophils Absolute Auto 0.02 K/uL (0.00-0.30); Basophils Percent Auto 0.3 % (0.0-3.0); Eosinophils Absolute Auto 0.16 K/uL (0.00-0.50); Eosinophils Percent Auto 2.1 % (0.0-7.0); Hematocrit 31.5 % (37.0-53.0); Hemoglobin* 10.5 gm/dL (13.5-17.5); Immature Granulocytes Abs Auto 0.08 K/uL (0.00-0.30); Immature Reticulocyte Fraction 13.3 % (2.3-13.4); Lymphocytes Percent Auto 16.8 % (20-44); Mean Corpuscular HGB Conc 33 gm/dL (32-36); Mean Corpuscular Hemoglobin 32 pg (26-34); Mean Corpuscular Volume 95 fL (80-100); Monocytes Percent Auto 7.3 % (0.0-11.0); Neutrophils Percent Auto 72.5 % (42.0-72.0); Platelet Count* 236 K/uL (140-440); RDW Coefficient of Variation % 13.6 % (11.5-15.5); Red Blood Count 3.33 m/uL (4.30-5.90); Reticulocyte Hemoglobin Equivi 31.4 pg (29.0-35.0); Reticulocyte Percent 1.1 % (0.5-2.0); Reticulocytes Absolute 0.04 # (0.03-0.08); White Blood Count* 7.63 K/uL (4.50-11.00)
[2024-08-24 09:05] LABS: Slide Review Reflex No
== END 2024-08-24 08:08 | disposition home or self-care (01) ==
LOC: LAB 08:08
PROVIDERS: PCP Family Medicine; Visit Provider Nurse Practitioner Family
DX: D72.829 Elevated white blood cell count, unspecified (principal)
CPT/HCPCS: 36415; 85025; 85045